=== PATIENT | female | born 1955 | race Caucasian/White ===

== ENCOUNTER → 2016-08-02 | Outpatient (CLI) | payer OTHER ==
[~2016-08-02] MED LIST: APAP500 PO; FLONASE 0.05%50 MCG NASAL; UNICOMPLEX M TA1 TA1 PO
== END ==
LOC: RAD 01:09
DX: R92.8 Other abnormal and inconclusive findings on diagnostic imaging of breast (principal)

== ENCOUNTER → 2017-09-21 | Outpatient (CLI) | payer OTHER | LOC: RAD 01:14 | DX: D05.12 Intraductal carcinoma in situ of left breast (principal) ==

== ENCOUNTER → 2018-09-05 | Outpatient (CLI) | payer OTHER | LOC: RAD 01:47 | DX: D05.92 Unspecified type of carcinoma in situ of left breast (principal); R92.2 Inconclusive mammogram; M81.0 Age-related osteoporosis without current pathological fracture; Z85.3 Personal history of malignant neoplasm of breast ==

== ENCOUNTER → 2019-09-08 | Outpatient (CLI) | payer OTHER | LOC: RAD 13:44 | DX: Z12.31 Encounter for screening mammogram for malignant neoplasm of breast (principal) ==

== ENCOUNTER → 2020-04-23 | Outpatient (CLI) | payer OTHER ==
[2020-04-23 11:21] LABS: CREATININE 0.7 mg/dL (0.6-1.0)
== END ==
LOC: CAT 09:39 → LAB 10:18 → CAT 10:18
PROVIDERS: ATTEND Family Medicine
DX: K57.30 Diverticulosis of large intestine without perforation or abscess without bleeding (principal); K76.89 Other specified diseases of liver; R63.4 Abnormal weight loss

== ENCOUNTER → 2020-09-08 | Outpatient (CLI) | payer OTHER | LOC: BC 08:48 | PROVIDERS: ATTEND Family Medicine | DX: Z12.31 Encounter for screening mammogram for malignant neoplasm of breast (principal); Z85.3 Personal history of malignant neoplasm of breast ==